=== PATIENT | female | born 1965 | race Caucasian/White ===

== ENCOUNTER 2023-12-06 07:58 | Outpatient (CLI) | payer BC, SELFPAY ==
--- NOTE | 2023-12-06 08:15 | MM_ITS ---
Patient: MARKO CAZARES Facility:?[facility] Patient ID:?[id number] Site Patient ID:?[id number]. Site :?[id number] Study:?XRay-Breast Bilateral 3D W/CAD-12/06/2023 10:09:19 AM Ordering Physician:?Loretta Tapia Final Report: BILATERAL DIGITAL SCREENING MAMMOGRAM WITH TOMOSYNTHESIS AND COMPUTER-AIDED DETECTION CLINICAL HISTORY: Routine screening exam. COMPARISON: 01/07/2016, 09/17/2005. TECHNIQUE: Digital mammogram in CC and MLO projections including computer-aided detection (CAD). Tomosynthesis utilized. BREAST COMPOSITION: The breasts are heterogeneously dense, which may obscure small masses. FINDINGS: RIGHT Breast: Clustered microcalcifications upper outer quadrant 4 cm from the nipple. LEFT Breast: No suspicious findings. IMPRESSION: RIGHT breast calcifications. RECOMMENDATIONS: Spot compression magnification views of the calcifications in the RIGHT breast in CC and ML projections. BI-RADS Category 0: Incomplete: Need additional Imaging Evaluation and/or Prior Mammograms for Comparison [facility] will contact the patient for follow-up. A lay language report of this examination will be provided to the patient. Dictated by Kalia Segura MD @ 12/07/2023 10:51:04 AM alisonj/Dictated by: Kalia Segura MD @ 12/07/2023 10:51:00 AM Signed by:?Kalia Segura MD @12/07/2023 1:51:06 PM (Electronic Signature)
== END 2023-12-06 07:59 | disposition home or self-care (01) ==
LOC: MAMMO 07:59
PROVIDERS: PCP Family Medicine; Visit Provider Nurse Practitioner Family
DX: Z12.31 Encounter for screening mammogram for malignant neoplasm of breast (principal); R92.2 Inconclusive mammogram; R92.0 Mammographic microcalcification found on diagnostic imaging of breast; R92.1 Mammographic calcification found on diagnostic imaging of breast
CPT/HCPCS: 77063; 77067

== ENCOUNTER 2023-12-13 08:16 | Outpatient (CLI) | payer BC, SELFPAY ==
--- NOTE | 2023-12-13 08:45 | MM_ITS ---
Patient: MARKO CAZARES Facility:?[facility] Patient ID:?[id number] Site Patient ID:?[id number] Site :?[id number] Study:?XRay-Breast Right 2D w/ CAD-12/13/2023 9:16:00 AM Ordering Physician:Gema Final Report: DIGITAL DIAGNOSTIC RIGHT MAMMOGRAM USING COMPUTER-AIDED DETECTION CLINICAL HISTORY: RIGHT breast calcifications. COMPARISON: 12/06/2023. TECHNIQUE: Digital RIGHT mammogram in three projections. Tomosynthesis utilized. BREAST COMPOSITION: The breast is heterogeneously dense, which may obscure small masses. FINDINGS: Additional views RIGHT breast demonstrates clustered punctate and slightly amorphous calcifications within the upper outer quadrant located 4 cm from the nipple without layering. No associated mass. IMPRESSION: Indeterminate microcalcifications RIGHT breast upper outer quadrant 4 cm from the nipple. RECOMMENDATIONS: Stereotactic-guided biopsy should be considered. Results and recommendations discussed with the patient. BI-RADS Category 4: Suspicious A lay language report of this examination will be provided to the patient. Dictated by Kalia Segura MD @ 12/13/2023 9:23:15 AM jj/Dictated by: Kalia Segura MD @ 12/13/2023 9:23:00 AM Signed by:?Kalia Segura MD @12/13/2023 12:47:57 PM (Electronic Signature)
== END 2023-12-13 08:17 | disposition home or self-care (01) ==
LOC: MAMMO 08:17
PROVIDERS: PCP Family Medicine; Visit Provider Family Medicine
DX: R92.0 Mammographic microcalcification found on diagnostic imaging of breast (principal); R92.8 Other abnormal and inconclusive findings on diagnostic imaging of breast
CPT/HCPCS: 77065; G0279

== ENCOUNTER 2024-01-10 13:22 | Outpatient (CLI) | payer BC, SELFPAY | END 2024-01-10 13:23 | disposition home or self-care (01) | LOC: LKVREF 13:22 | PROVIDERS: PCP Family Medicine; Visit Provider Family Medicine | DX: Z13.220 Encounter for screening for lipoid disorders (principal) | CPT/HCPCS: 80061 ==